=== PATIENT | female | born 1990 | race Asian ===

== ENCOUNTER 2017-07-12 07:26 | Day surgery (SDC) | payer OTHER ==
[2017-07-08 11:20] VITALS: BMI 34.7
--- NOTE | 2017-07-12 08:58 | HP ---
Admitting History and Physical - Admission Chief Complaint: Abnormal Pap smear History of Present Illness: 27 yo Para 0 with cervical dysplasia is pre op for LEEP. History Source: Patient Limitations to Obtaining History: No Limitations - Past Medical History ...LMP: 04/13/17 ...LMP Comment: MENSES ARE IRREGULAR ...: No - Past Surgical History Past Surgical History: Yes: None - Smoking History Smoking history: Never smoked Aproximately how many cigarettes per day: 0 - Alcohol/Substance Use Hx Alcohol Use: Yes (OCCAS) History of Substance Use: reports: None - Social History History of Recent Travel: No Home Medications - Allergies Allergies/Adverse Reactions: Allergies Allergy/AdvReac Type Severity Reaction Status Date / Time No Known Allergies Allergy Verified 07/12/17 07:42 - Home Medications Home Medications: Ambulatory Orders Multivitamin [One Daily] 1 each PO DAILY 07/08/17 Family Disease History - Family Disease History Family History: Unremarkable Review of Systems - Review of Systems Constitutional: reports: No Symptoms Eyes: reports: No Symptoms HENT: reports: No Symptoms Neck: reports: No Symptoms Cardiovascular: reports: No Symptoms Respiratory: reports: No Symptoms Gastrointestinal: reports: No Symptoms Genitourinary: reports: No Symptoms Breasts: reports: No Symptoms Reported Musculoskeletal: reports: No Symptoms Integumentary: reports: No Symptoms Neurological: reports: No Symptoms Endocrine: reports: No Symptoms Hematology/Lymphatic: reports: No Symptoms Physical Examination Vital Signs: Vital Signs Temperature 98.0 F 07/12/17 08:12 Pulse Rate 84 07/12/17 08:12 Respiratory Rate 18 07/12/17 08:12 Blood Pressure 121/66 07/12/17 08:12 O2 Sat by Pulse Oximetry (%) 99 07/12/17 08:15 Constitutional: Yes: Well Nourished Eyes: Yes: Conjunctiva Clear HENT: Yes: Atraumatic Neck: Yes: Supple Cardiovascular: Yes: Regular Rate and Rhythm Respiratory: Yes: Regular Gastrointestinal: Yes: Normal Bowel Sounds Integumentary: Yes: WNL Neurological: Yes: Alert, Oriented ...Motor Strength: WNL Psychiatric: Yes: Alert, Oriented Problem List - Problems (1) Cervical dysplasia Code(s): N87.9 - DYSPLASIA OF CERVIX UTERI, UNSPECIFIED Assessment/Plan Cervical dysplasia Pre op for LEEP Consent signed Anesthesia to see patient
[2017-07-12] MEDS ORDERED: PROPOFOL 20 ML ONE ×2 (09:10→09:33)
[2017-07-12] MEDS ORDERED: MIDAZOLAM HCL 2 MG/2 ML SINGLE DOSE VIAL ONE (09:10)
[2017-07-12] MEDS ORDERED: ONDANSETRON 4 MG/2 ML VIAL IVPUSH PRN (10:50)
[2017-07-12] MEDS ORDERED: PROMETHAZINE HCL 25 MG/1 ML VIAL IVPUSH PRN (10:50)
[2017-07-12] MEDS ORDERED: oxyCODONE HCL 5 MG TABLET PO PRN (10:50)
[2017-07-12 11:12] VITALS: TEMP 98.2
[2017-07-12] MEDS ORDERED: IBUPROFEN 600 MG TABLET (FP) PO ONE (11:22)
[2017-07-12 12:00] VITALS: BP 119/74; PULSE 86
--- NOTE | 2017-07-13 14:44 | PATH ---
Surgical Pathology Report Patient Name: AIDEN KINNEY [facility]. Rec. #: [id number] /Age/Gender: 1990 (Age: 27) / F Account: [id number] Location: [facility] SURGICAL Taken: 07/12/2017 Received: 07/12/2017 Reported: 07/13/2017 Physicians: Cheyenne Tejada M.D. Specimen(s) Received PORTION OF CERVIX Clinical History Cervical dysplasia Final Diagnosis PORTION OF CERVIX, LARGE LEEP LOOP EXCISION: CERVICAL SQUAMOUS AND ENDOCERVICAL MUCOSA HIGH-GRADE SQUAMOUS INTRAEPITHELIAL LESION (CERVICAL INTRAEPITHELIAL NEOPLASIA 2/DEMETRIO 2) WITH FOCAL GLANDULAR INVOLVEMENT, PRESENT IN UNDESIGNATED SMALLER TISSUE FRAGMENTS; AREAS OF LOW GRADE INTRAEPITHELIAL LESION ALSO PRESENT. SURGICAL RESECTION MARGINS: APPEAR NEGATIVE FOR HIGH GRADE DYSPLASIA WITH LIMITED ASSESSMENT DUE TO THE FRAGMENTED NATURE OF THE SPECIMEN AND FOCAL DETACHMENT OF DYSPLASTIC EPITHELIUM. TRANSFORMATION ZONE: PRESENT. Electronically Signed Jason Ashley M.D. Gross Description Received in formalin labeled "portion of cervix" is a 1.8 cm in diameter annular portion of soft tissue, consistent with a cervical LEEP cone biopsy. There is a suture present marking the 12:00 aspect of the specimen, per surgeon. The specimen is partially surfaced by a garcia-pink, shiny glistening mucosa. The specimen is inked blue and serially sectioned. Also received within the same container are 3 garcia, irregular, undesignated portions of cervical tissue averaging 1.5 x 0.7 x 0.4 cm. The specimens are inked blue and serially sectioned. The specimen is entirely submitted in 6 cassettes as follows: 1 -12:00 to 3:00; 2 -3:00 to 6:00; 3 -6:00 to 9:00; 4 -9:00 to 12:00; 9-5-fzrkhewjlu received portions of tissue. DL/07/12/2017 saudi/07/12/2017
--- NOTE | 2017-07-28 07:58 | OP ---
DATE OF OPERATION: 07/12/2017 PREOPERATIVE DIAGNOSIS: Cervical dysplasia. POSTOPERATIVE DIAGNOSIS: Cervical dysplasia. PROCEDURE PERFORMED: Loop electrosurgical excision procedure. SURGEON: Cheyenne Tejada M.D. ANESTHESIA: General. COMPLICATIONS: None. ESTIMATED BLOOD LOSS: 20 mL. DESCRIPTION OF PROCEDURE: The patient was taken to the operating room, where general anesthesia was administered. The patient was then placed in the lithotomy position. She was then prepped and draped in the proper sterile fashion. A speculum was placed in the vagina. The anterior lip of the cervix was grasped with a tenaculum and a suture placed at the 12 o'clock position as a marker. After cleaning the vagina with acetic acid, the vagina and cervix were painted with Lugol's solution. A large loop electrode was used to excise a portion of the cervix. excision was made using the smaller loop. Hemostasis was obtained using cautery and solution. Then the instruments were removed. The patient was taken out of the lithotomy position. She was taken to the PACU in stable condition. PATHOLOGY: Portion of the cervix. Timothy CHAVEZ/[id number]
== END 2017-07-12 12:00 | disposition home or self-care (01) ==
LOC: JASU-SURG 07:26
PROVIDERS: ATTEND Obstetrics & Gynecology
PROC: 0UBC7ZX Excision of Cervix, Via Natural or Artificial Opening, Diagnostic (ICD-10-PCS; principal; 2017-07-12 09:00)
DX: N87.1 Moderate cervical dysplasia (principal)
CPT/HCPCS: 88307-TC; 94760

== ENCOUNTER 2021-02-13 04:21 | Day surgery (SDC) | payer OTHER ==
[2021-02-11 14:26] VITALS: BMI 34.7
[~2021-02-13 04:21] MED LIST: ceFAZolin SODIUM 1 GM VIAL IVPB ONE
[2021-02-13] MEDS ORDERED: DEXAMETHASONE SOD PHOSPHATE 4 MG/1 ML VIAL ONE (09:14)
[2021-02-13] MEDS ORDERED: fentaNYL CITRATE 250 MCG/5 ML VIAL ONE (09:14)
[2021-02-13] MEDS ORDERED: MIDAZOLAM HCL 2 MG/2 ML SINGLE DOSE VIAL ONE (09:14)
[2021-02-13] MEDS ORDERED: PROPOFOL 20 ML ONE (09:14)
[2021-02-13] MEDS ORDERED: ROCURONIUM BROMIDE 50 MG/5 ML SYRINGE ONE (09:14)
[2021-02-13] MEDS ORDERED: LIDOCAINE HCL/PF 2% SDV 5ML VIAL ONE (09:14)
[2021-02-13] MEDS ORDERED: ceFAZolin SODIUM 1 GM VIAL ONE (10:00)
[2021-02-13] MEDS ORDERED: ceFAZolin SODIUM 1 GM VIAL IVPB ONE (10:01)
[2021-02-13] MEDS ORDERED: BUPIVACAINE HCL/PF 0.5% (5MG/ML) 10 ML VIAL IJ ONE (10:10)
[2021-02-13] MEDS ORDERED: GLYCOPYRROLATE 0.2 MG/1 ML VIAL ONE (11:10)
[2021-02-13] MEDS ORDERED: KETOROLAC TROMETHAMINE 30 MG/1 ML VIAL ONE (11:10)
[2021-02-13] MEDS ORDERED: NEOSTIGMINE METHYLSULFATE 0.5 MG/ML - 10 ML MDV ONE (11:10)
[2021-02-13] MEDS ORDERED: LACTATED RINGERS SOLUTION 1,000 ML IV SCH (11:15)
[2021-02-13] MEDS ORDERED: ONDANSETRON 4 MG/2 ML VIAL IVPUSH PRN (11:15)
[2021-02-13] MEDS ORDERED: oxyCODONE HCL 5 MG TABLET PO PRN ×2 (11:15)
[2021-02-13] MEDS ORDERED: oxyCODONE HCL 5 MG TABLET ONE (13:19)
[2021-02-13] MEDS ORDERED: ONDANSETRON 4 MG/2 ML VIAL ONE (13:25)
[2021-02-13 16:18] VITALS: BP 109/68; PULSE 80; TEMP 97
[2021-02-14] MEDS ORDERED: HYOSCYAMINE SULFATE 0.125 MG *ODT PO SCH (10:00)
[2021-02-14] MEDS ORDERED: NORGESTIMATE ETHINYL ESTRADIOL PO SCH (10:00)
[2021-02-14] MEDS ORDERED: PANTOPRAZOLE 40 MG TABLET PO SCH (10:00)
== END 2021-02-13 15:30 | disposition home or self-care (01) ==
LOC: JASU-SURG 04:21
PROVIDERS: ATTEND Surgery
PROC: 0FT44ZZ Resection of Gallbladder, Percutaneous Endoscopic Approach (ICD-10-PCS; principal; 2021-02-13 09:30)
DX: K80.10 Calculus of gallbladder with chronic cholecystitis without obstruction (principal)
CPT/HCPCS: 81025; 88304-TC; 94760

== ENCOUNTER 2021-02-16 15:16 | Emergency (ER) | payer OTHER ==
[2021-02-16 15:28] VITALS: BMI 34.7
[2021-02-16 17:09] LABS: BASO % 0.4 % (0-2.0); EOS % 3.5 % (0-4.5); HEMOGLOBIN 11.6 GM/dL (10.7-15.3); LYMPH % 33.3 % (8-40); MCH 23.9 pg (25.7-33.7); MCHC 32.3 g/dl (32.0-36.0); MEAN PLT VOLUME 8.2 fl (7.5-11.1); MONO % 5.6 % (3.8-10.2); NEUT % 57.2 % (42.8-82.8); PLATELET COUNT 427 K/MM3 (134-434); RBC 4.87 M/mm3 (3.60-5.2); RDW 16.4 % (11.6-15.6)
[2021-02-16 17:10] LABS: INR 1.03 (0.83-1.09); PROTHROMBIN TIME (PATIENT) 12.7 SEC (9.7-13.0)
[2021-02-16 17:13] LABS: ACTIVATED PTT 33.7 SECONDS (25.2-36.5); CHLORIDE 105 mmol/L (98-107); SODIUM 138 mmol/L (136-145)
[2021-02-16 17:15] LABS: CALCIUM 9.1 mg/dL (8.5-10.1)
[2021-02-16 17:16] LABS: ALBUMIN 3.2 g/dl (3.4-5.0); ANION GAP 6 MMOL/L (8-16); BLOOD UREA NITROGEN 5.5 mg/dL (7-18); CO2 28 mmol/L (21-32); GLUCOSE,RANDOM 78 mg/dL (74-106)
[2021-02-16 17:19] LABS: CREATININE 0.7 mg/dL (0.55-1.3); SGOT/AST 49 U/L (15-37); SGPT/ALT 76 U/L (13-61)
[2021-02-16 17:20] LABS: BILIRUBIN,TOTAL 0.2 mg/dL (0.2-1); TOT PROT 7.8 g/dl (6.4-8.2)
[2021-02-16 17:29] LABS: ALK PHOS 110 U/L (45-117)
[2021-02-16 19:00] VITALS: BP 119/75; PULSE 77; TEMP 97.9
== END 2021-02-16 19:00 | disposition home or self-care (01) ==
LOC: JER 15:16
DX: R06.02 Shortness of breath (principal)
CPT/HCPCS: 36415; 71275-TC; 80053; 84484; 84703; 85025; 85379; 85610; 85730; 93005; 93010; 99284-25